=== PATIENT | female | born 1965 | race African-American/Black ===

== ENCOUNTER 2019-05-11 07:28 | Day surgery (SDC) | payer OTHER ==
[2019-05-11 08:11] VITALS: BMI 40.3
[2019-05-11] MEDS ORDERED: PROPOFOL 20 ML ONE (09:29)
[2019-05-11] MEDS ORDERED: TRIAMCINOLONE ACET 40MG/1ML VIAL ONE (09:37)
[2019-05-11] MEDS ORDERED: BUPIVACAINE HCL 0.25% 125 MG/50 ML VIAL ONE (09:38)
[2019-05-11] MEDS ORDERED: ceFAZolin SODIUM 1 GM VIAL ONE (10:03)
[2019-05-11] MEDS ORDERED: DEXAMETHASONE SOD PHOSPHATE 4 MG/1 ML VIAL ONE (10:04)
[2019-05-11] MEDS ORDERED: ONDANSETRON 4 MG/2 ML VIAL ONE (10:04)
[2019-05-11] MEDS ORDERED: GLYCOPYRROLATE 0.2 MG/1 ML VIAL ONE (10:16)
--- NOTE | 2019-05-11 10:47 | PN ---
Progress Note (short form) - Note Progress Note: 54F s/p surgical arthroscopy LEFT knee & removal of numerous large loose bodies POD #0. -Pain control: Vicodin, NSADI's PRN - ordered to pharmacy. -Incentive spirometry. -No chemical DVT PPx. -WBAT LLE. -Keep dressing clean & dry; remove dressing on Tuesday and cover incisions with water-proof band-aids. -Cane vs crutches PRN. -f/u in [facility] [place] [facility] 7-10 days; call for appointment; . Ravin Oscar MD (Orthopaedic Surgery).
[2019-05-11] MEDS ORDERED: PROMETHAZINE HCL 25 MG/1 ML VIAL IVPUSH PRN (10:48)
[2019-05-11] MEDS ORDERED: oxyCODONE HCL 5 MG TABLET PO PRN ×2 (10:48)
--- NOTE | 2019-05-11 10:56 | OP ---
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
[2019-05-11] MEDS: ONDANSETRON 4 MG/2 ML VIAL IVPUSH PRN ×2 (11:04→12:05)
[2019-05-11] MEDS ORDERED: TIZANIDINE HCL 4 MG TABLET PO PRN (11:07)
[2019-05-11 13:38] VITALS: BP 128/74; PULSE 60; TEMP 97.9
--- NOTE | 2019-05-11 20:40 | OP ---
DATE OF OPERATION: 05/11/2019 SURGEON: Ravin Oscar MD. PREOPERATIVE DIAGNOSIS: Osteoarthritis of medial meniscal tear and loose body back of the knee. POSTOPERATIVE DIAGNOSIS: Osteoarthritis left knee with multiple loose bodies. OPERATION PERFORMED: Surgical Arthroscopy Left Knee with Removal of Loose Bodies. ([id number]) ANESTHESIA: General. ANESTHESIOLOGIST: Niles Bridges MD. OPERATION DETAILS: The patient was correctly identified, brought in operating room. Left lower extremity was prepped, draped in the routine manner with Betadine scrub solution, wiped off with alcohol, DuraPrep applied. The timeout was called. Imaging was available for intraoperative evaluation. The knee was subjected to an arthroscopic approach via the anterolateral portal. The arthroscopic instrumentation introduced into the knee. Through this simple scope multiple loose fragments were noted floating throughout the joint. Through the same portal, I removed the scope, the actual lens of the arthroscopy, and washed out the joint repeatedly with 3 L of saline, all reintroduced the lens into the knee, reviewed the entire situation which was a markedly improved finding. Arthroscopically the synovium revealed the diffuse fibrillar change of chronic nature. The retropatellar surfaces auto bridge level 1 and 2 changes. The trochlear groove revealed significant arthritic changes for the articulation with the patella with auto bridge level 3 changes. The medial femoral condyle was most severely affected with patchy areas of complete eburnation to bone. The periphery of each of the cartilage deficient areas, the hyaline cartilage was completely stable, necessitating no shaving chondroplasty. The meniscus on the medial side was pristine and fully intact. The intracondylar notch had thickened ligamentum mucosa. The lateral compartment was normal in appearance, that is the hyaline cartilage with femoral cartilage, tibial plateau, and meniscus. A qkombl-[id number] position was utilized in order to get into the lateral space for adequate visualization. The popliteal hiatus loose bodies originally were noted in the popliteal hiatus; these had all disappeared following the washout. The knee was again lavaged thoroughly; 40 mg of Depo-Medrol with 5 mL of Marcaine was instilled into the joint, and the portal was closed with 3-0 nylon. Operation went well. No complications. MD MILO Ramirez/[id number] [facility]
[2019-05-12] MEDS ORDERED: PANTOPRAZOLE 40 MG TABLET PO SCH (10:00)
== END 2019-05-11 13:30 | disposition home or self-care (01) ==
LOC: FASU 07:28
PROVIDERS: ATTEND Orthopaedic Surgery Orthopaedic Surgery of the Spine
PROC: 0SCD4ZZ Extirpation of Matter from Left Knee Joint, Percutaneous Endoscopic Approach (ICD-10-PCS; principal; 2019-05-11 10:21)
DX: M17.12 Unilateral primary osteoarthritis, left knee (principal); M23.42 Loose body in knee, left knee
CPT/HCPCS: 94760